=== PATIENT | male | born 1985 | race Caucasian/White ===

== ENCOUNTER 2016-07-09 13:31 | Day surgery (SDC) | payer MEDICAID ==
[~2016-07-09] VITALS: Ht 182.9 cm; Wt 96.6 kg
[~2016-07-09 13:31] MED LIST: ASPIRIN 81MG TA81 MG PO; BIOFREEZE TP; CYCLOBENZAPRINE10 M1 OR; CYCLOBENZAPRINE5 MG PO; DICLOFENAC SODI75 M2 PO; EC NAPROSYN500 MG PO; FLEXERIL10 MG PO; FLUOXETINE 10MG10 MG PO; GABAPENTIN300 MG PO; LISINOPRIL 10MG10 MG PO; MEN'S MULTIVITA1 TA1 PO; OMEPRAZOLE20 MG PO; TRAMADOL 50MG T1 PAK PO; TRAMADOL50 M1 PO; ULTRAM50 MG PO; VOLTAREN 25MG T25 MG OR
[2016-07-09 14:07] VITALS: BP 165/90
[2016-07-09 14:35] VITALS: BP 150/92; BP 165/90
[2016-07-09 14:43] VITALS: BP 157/90
--- NOTE | 2016-07-09 14:52 | Procedure Note ---
Procedure detail Date of procedure: 07/09/16 Anesthesiologist: Ezio vela CRNA Complications: None Pre-procedure diagnosis: Degenerative disease lumbar spine lumbar radiculopathy symptoms. Post-procedure diagnosis: Same Indications for procedure: Patient's a pleasant 30-year-old returns our pain clinic today after receiving his first lumbar epidural steroid injection. Patient's lumbar imaging does show degenerative disc lumbar spine multiple levels as well as disc herniation. Patient reports 90 percent improvement terms of his low back pain as well as bilateral hip pain after his first injection. However, he states his pain is beginning to return into the RIGHT hip and leg. I think it would be reasonable try second lumbar epidural steroid injection. Patient describes his pain as constant, dull, aching. He rates his pain 6/10. 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 He is on his feet for 10-15 hours a day. Procedure detail: Procedure: Lumbar epidural steroid injection under fluoroscopy Informed consent was obtained and the risks and benefits of the procedure were explained to the patient. The patient was taken to the procedure room and noninvasive monitors placed, including noninvasive blood pressure cuff and pulse oximeter. The back was viewed using C-arm Fluoroscopy and prepped using Betadine as a cleansing solution and the L4-L5 interspace was palpated. Skin and subcutaneous tissues were anesthetized using lidocaine 1.5% and a 25-gauge needle. After this, an 18-gauge Touhy epidural needle was placed into the L4-L5 interspace and advanced using fluoroscopic guidance and loss of resistance to air until the epidural space was encountered. After confirmation of needle placement in the epidural space, with dye, a solution containing lidocaine 1.5%, 4 mL and Depo-Medrol 80 mg were incrementally injected into the lumbar epidural space. The patient tolerated the procedure well with no complications. The patient was observed in the Pain Clinic and then discharged home neurologically intact. Plan and disposition: Patient will follow up with us in the pain clinic for further evaluation. at [id number]
== END 2016-07-09 14:43 | disposition home or self-care (01) ==
LOC: PM 13:31
PROC: 3E0R33Z Introduction of Anti-inflammatory into Spinal Canal, Percutaneous Approach (ICD-10-PCS; principal; 2016-07-09)
PROC: 3E0R3BZ Introduction of Anesthetic Agent into Spinal Canal, Percutaneous Approach (ICD-10-PCS; 2016-07-09)
DX: M51.16 Intervertebral disc disorders with radiculopathy, lumbar region (principal)
CPT/HCPCS: J1040; Q9966

== ENCOUNTER → 2017-02-17 | Outpatient (CLI) | payer MEDICAID ==
--- NOTE | 2017-02-19 11:07 | RADIOLOGY REPORT PS360 ---
MRI-L-SPINE W/O, MRI-3D RENDERING/MYELOGRAM HISTORY: LUMBAR FACET ARTHROPATHY Patient Age: 31 years: Male Ordering Physician: INGA AGARWAL TECHNIQUE: Sagittal STIR, T1, T2, axial T1 and T2. On 1.5T Siemens wide bore MRI. 3-D MR myelogram image set obtained & performed on MRI workstation. Additional sagittal thin section T2 weighted dataset obtained from this latter acquisition as well (---76 CPT) COMPARISON :MRI lumbar spine August 2016 FINDINGS Vertebral bodies are intact. normal curvature and alignment. The marrow signal is normalin all lumbar vertebrae. Lumbar disks appear hydrated and maintained except for the L4/5 disc L4/5. Prominent diffuse Disc bulge with additional large broad-based central disc protrusion/bulge L4-5 midline. This prominently effaces the thecal sac yielding pronounced central canal stenosis. Moderate bilateral foraminal encroachment is is also seen at due to the combination of facet hypertrophy and disc bulge However overall these features appear to be similar to previous study from August 2016 with no significant progression. On axial images I question slight improvement to the right of midline but the sagittal images appear unchanged. Findings warrant ongoing follow-up with neurosurgery team to correlate clinical status with this prominent spinal stenosis at this level The 3-D myelogram image set nicely demonstrates the pronounced spinal stenosis at this level with marked tapering/narrowing of the spinal canal this level due to the disc protrusion/bulge along with the facet hypertrophy. .. . . IMPRESSION: L4/5: Prominent disc bulge with additional prominent broad-based central disc protrusion again seen-yielding prominent central canal stenosis. The findings are similar to previous August 2016 exam with no significant change Also this disc bulge along with posterior element/facet hypertrophy yields generous bilateral recess & foraminal encroachment as well. Findings are similar to previous study, with no significant progression or change. Patient would benefit from ongoing follow-up neurosurgery team to evaluate/correlate symptoms from these notable abnormalities at L4/5
== END ==
LOC: RAD 02-13 15:00
DX: M12.88 Other specific arthropathies, not elsewhere classified, other specified site (principal)